=== PATIENT | male | born 1975 | race African-American/Black ===

== ENCOUNTER 2020-03-08 22:21 | Emergency (ER) | payer OTHER ==
[~2020-03-08] VITALS: Ht 188 cm; Wt 100.0 kg
[~2020-03-08 22:21] MED LIST: AUGMENTIN500 MG OR; NAPROSYN500 MG OR; NO MEDS
[2020-03-08 23:12] LABS: HEMATOCRIT 43.9 % (39.0-50.0); HEMOGLOBIN 14.5 g/dl (14.0-18.0); IMMATURE GRANULOCYTES 0.5 % (0.0-5.0); MEAN CELL VOLUME 85.6 fL CALC (80.0-100.0); MEAN CORPUSCULAR HGB 28.3 pG CALC (26.0-32.0); NEUT# 4.67 thou/uL (1.82-7.42); RED BLOOD COUNT 5.13 mill/uL (4.70-6.10); RED CELL DISTRI WIDTH 13.1 % (11.5-15.5)
[2020-03-08 23:36] LABS: ALBUMIN 5.3 g/dL (3.2-5.0); ALKALINE PHOSPHATASE 91 u/l (38-126); ANION GAP 28 (6-22 (CALC)); BILIRUBIN, TOTAL 0.3 mg/dL (0.0-1.4); BUN 16 mg/dL (9-20); BUN/CREATININE RATIO 10 (12-20 (CALC)); CARBON DIOXIDE 10 mmol/l (22-30); CHLORIDE 109 mmol/l (95-108); CPK 676 u/l (52-200); CREATININE 1.7 mg/dL (0.7-1.3); ETHYL ALCOHOL 0 mg/dl (0-30); GFR 44 ML/MIN (>=60 (CALC)); GFR FOR AFR.AMER. 53 ML/MIN (>=60 (CALC)); POTASSIUM 4.6 mmol/l (3.5-5.1); SGOT/AST 48 u/l (17-59); SODIUM 142 mmol/l (137-146); TOTAL PROTEIN 8.2 g/dL (6.3-8.2)
[2020-03-08 23:55] LABS: MYOGLOBIN 841 ng/mL (0 - 121)
[2020-03-08 23:58] VITALS: BP 139/79
== END 2020-03-09 00:28 | DRG 558 ==
LOC: ED 22:21
PROVIDERS: Family Medicine
DX: M62.82 Rhabdomyolysis (principal); F14.10 Cocaine abuse, uncomplicated; F16.10 Hallucinogen abuse, uncomplicated; F12.10 Cannabis abuse, uncomplicated; F17.200 Nicotine dependence, unspecified, uncomplicated

== ENCOUNTER 2021-01-22 19:38 | Emergency (ER) | payer SELFPAY ==
[~2021-01-22] VITALS: Ht 188 cm; Wt 104.0 kg
[2021-01-22 20:30] VITALS: BP 118/67
== END 2021-01-22 20:30 | disposition home or self-care (01) | DRG 605 ==
LOC: ED 19:38
PROC: 0HQFXZZ Repair Right Hand Skin, External Approach (ICD-10-PCS; principal; 2021-01-22)
DX: S61.216A Laceration without foreign body of right little finger without damage to nail, initial encounter (principal); F17.290 Nicotine dependence, other tobacco product, uncomplicated; W26.0XXA Contact with knife, initial encounter; Y93.G1 Activity, food preparation and clean up; Y92.000 Kitchen of unspecified non-institutional (private) residence as the place of occurrence of the external cause